=== PATIENT | female | born 1985 | race African-American/Black ===

== ENCOUNTER 2017-10-04 10:38 | Inpatient (IN) | payer OTHER ==
[2017-10-04] MEDS ORDERED: LIDOCAINE 1% (MPF) 30 ML INJ INJ (13:30)
[2017-10-04] MEDS ORDERED: MISOPROSTOL 200 MCG TAB PR (13:30)
[2017-10-04] MEDS ORDERED: METHYLERGONOVINE 0.2 MG INJ IM (13:30)
[2017-10-04] MEDS ORDERED: IBUPROFEN 600 MG TAB PO (13:30)
[2017-10-04] MEDS ORDERED: CARBOPROST 250 MCG INJ IM (13:30)
[2017-10-04] MEDS ORDERED: OXYTOCIN 30 UNITS/LR 500 ML IV (13:30)
[2017-10-04] MEDS: MISOPROSTOL 25 MCG CAPSULE PO ×3 (15:41→21:00)
[2017-10-04 15:59] LABS: ADD MAN DIFF? NO
[2017-10-04] MEDS ORDERED: LACTATED RINGER'S 500 ML IV (16:00)
[2017-10-04] MEDS: LACTATED RINGER'S 1,000 ML IV ×2 (16:01→23:07)
[2017-10-04 16:06] LABS: WHITE BLOOD COUNT 10.3 10^3/ul (4.8-10.8)
[2017-10-04 16:06] LABS: BASOPHILS % 0.1 % (0.0-2.0); EOSINOPHILS # 0.1 10^3/ul (0.0-0.5); EOSINOPHILS % 0.8 % (0.0-7.0); HEMATOCRIT 34.5 % (37.0-47.0); HEMOGLOBIN 11.9 g/dl (12.0-16.0); LYMPHOCYTES # 2.2 10^3/ul (0.8-2.9); LYMPHOCYTES % 21.8 % (15.0-51.0); MEAN CORPUSCULAR HEMOGLOBIN 33.2 pg (29.0-33.0); MEAN CORPUSCULAR HGB CONC 34.5 g/dl (32.0-37.0); MEAN CORPUSCULAR VOLUME 96.4 fl (82.0-101.0); MONOCYTE # 0.9 10^3/ul (0.3-0.9); MONOCYTES % 8.6 % (0.0-11.0); NEUTROPHILS % 67.5 % (39.0-77.0); PLATELET COUNT 163 10^3/UL (140-415); RED BLOOD COUNT 3.58 10^6/ul (4.20-5.40); RED CELL DISTRIBUTION WIDTH 13.7 % (11.5-14.5)
[2017-10-04 16:22] LABS: INR 0.94; PARTIAL THROMBOPLASTIN TIME 25.8 Sec (25.0-35.0); PROTIME 12.7 Sec (11.9-14.9)
[2017-10-04 17:33] LABS: AMPHETAMINE/METHAMPHETAMINE Negative (NEGATIVE); BARBITURATES Negative (NEGATIVE); BENZODIAZEPINES Negative (NEGATIVE); COCAINE Negative (NEGATIVE); OPIATES Negative (NEGATIVE)
[2017-10-04 17:36] LABS: CANNABINOIDS Positive (NEGATIVE)
[2017-10-04] MEDS: BUTORPHANOL 2 MG INJ IV (23:21)
[2017-10-05] MEDS: LACTATED RINGER'S 1,000 ML IV* (00:57)
[2017-10-05] MEDS: MISOPROSTOL 25 MCG CAPSULE PO ×3 (01:00→09:00)
[2017-10-05] MEDS: BUTORPHANOL 2 MG INJ IV (01:24)
[2017-10-05] MEDS: LACTATED RINGER'S 1,000 ML IV ×5 (05:10→20:04)
[2017-10-05] MEDS ORDERED: FENTAnyl 2MCG/ML-ROPIV 0.2% 100 ML (06:19)
[2017-10-05] MEDS ORDERED: ONDANSETRON 4 MG INJ IV (07:00)
[2017-10-05] MEDS ORDERED: NALOXONE (0.4 MG/ML) INJ IV (07:00)
[2017-10-05] MEDS ORDERED: HYDROmorphONE 0.5 MG/0.5 ML SYG IV ×2 (07:00)
[2017-10-05] MEDS ORDERED: KETOROLAC 30 MG INJ IV (07:00)
[2017-10-05] MEDS ORDERED: DIPHENHYDRAMINE 50 MG INJ IV (07:00)
[2017-10-05] MEDS: FENTAnyl 2MCG/ML-ROPIV 0.2% 100 ML BAG EPI ×2 (09:50→14:51)
[2017-10-05] MEDS: OXYTOCIN 30 UNITS/LR 500 ML IV ×2 (18:30→20:54)
[2017-10-05] MEDS: OXYTOCIN 30 UNITS/LR 500 ML IVPB (20:36)
[2017-10-05 21:39] LABS: RAPID PLASMA REAGIN NONREACTIVE (NR)
[2017-10-05] MEDS: HYDROCODONE/APAP (5/325) TAB PO (22:53)
[2017-10-05] MEDS: WITCH HAZEL/GLYCERIN PAD PR (22:53)
[2017-10-05] MEDS: LANOLIN 7 GM TUBE TOP (22:54)
[2017-10-05] MEDS: DIBUCAINE 1% 30 GM OINT PR (22:54)
[2017-10-05] MEDS: BENZOCAINE 20% 56 ML SPRAY TOP (22:54)
[2017-10-05] MEDS ORDERED: ACETAMINOPHEN 325 MG TAB PO (23:00)
[2017-10-05] MEDS ORDERED: OXYTOCIN 30 UNITS/LR 500 ML IV (23:00)
[2017-10-05] MEDS ORDERED: MISOPROSTOL 200 MCG TAB PR (23:00)
[2017-10-05] MEDS ORDERED: METHYLERGONOVINE 0.2 MG INJ IM (23:00)
[2017-10-05] MEDS ORDERED: CARBOPROST 250 MCG INJ IM (23:00)
[2017-10-05] MEDS: IBUPROFEN 600 MG TAB PO (23:47)
[2017-10-06] MEDS: IBUPROFEN 600 MG TAB PO ×3 (05:46→18:14)
[2017-10-06] MEDS: SENNA/DOCUSATE NA (8.6MG/50MG) TAB PO ×2 (08:32→21:40)
[2017-10-06] MEDS: HYDROCODONE/APAP (5/325) TAB PO (08:34)
[2017-10-06 10:35] LABS: WHITE BLOOD COUNT 27.1 10^3/ul (4.8-10.8)
[2017-10-06 10:35] LABS: ABNORMAL IP MESSAGE 1; HEMATOCRIT 29.4 % (37.0-47.0); HEMOGLOBIN 10.3 g/dl (12.0-16.0); MEAN CORPUSCULAR HEMOGLOBIN 33.6 pg (29.0-33.0); MEAN CORPUSCULAR VOLUME 95.8 fl (82.0-101.0); PLATELET COUNT 140 10^3/UL (140-415); RED BLOOD COUNT 3.07 10^6/ul (4.20-5.40); RED CELL DISTRIBUTION WIDTH 13.5 % (11.5-14.5)
[2017-10-06 10:41] LABS: ADD MAN DIFF? YES; POSITIVE DIFF @See below
[2017-10-06 11:22] LABS: HEPATITIS B SURFACE ANTIGEN NEGATIVE (NEGATIVE)
[2017-10-07] MEDS: IBUPROFEN 600 MG TAB PO ×4 (00:11→17:30)
[2017-10-07] MEDS: SENNA/DOCUSATE NA (8.6MG/50MG) TAB PO (08:46)
[2017-10-07] MEDS: HYDROCODONE/APAP (5/325) TAB PO (08:47)
[2017-10-07 09:41] LABS: ADD MAN DIFF? NO
[2017-10-07 09:44] LABS: WHITE BLOOD COUNT 18.8 10^3/ul (4.8-10.8)
[2017-10-07 09:44] LABS: BASOPHILS % 0.2 % (0.0-2.0); EOSINOPHILS # 0.2 10^3/ul (0.0-0.5); EOSINOPHILS % 0.8 % (0.0-7.0); HEMATOCRIT 29.9 % (37.0-47.0); HEMOGLOBIN 10.4 g/dl (12.0-16.0); LYMPHOCYTES # 2.4 10^3/ul (0.8-2.9); LYMPHOCYTES % 12.5 % (15.0-51.0); MEAN CORPUSCULAR HEMOGLOBIN 33.5 pg (29.0-33.0); MEAN CORPUSCULAR HGB CONC 34.8 g/dl (32.0-37.0); MEAN CORPUSCULAR VOLUME 96.5 fl (82.0-101.0); MONOCYTE # 1.1 10^3/ul (0.3-0.9); MONOCYTES % 5.8 % (0.0-11.0); NEUTROPHILS % 79.7 % (39.0-77.0); PLATELET COUNT 152 10^3/UL (140-415); RED CELL DISTRIBUTION WIDTH 13.5 % (11.5-14.5)
[2017-10-07] MEDS: DIPHTH/TET/ACEL PERTUSS (ADULT) 0.5 ML VIAL IM* (12:47)
[2017-10-10 02:51] LABS: URINE DRUG SCREEN RESULT DRUG(S) DETECTED:
== END 2017-10-07 19:15 | disposition home or self-care (01) | DRG 775 ==
LOC: OBT 10:38 → L-D 10:39 → PP1 10-05 22:24 → L-D 13:24 → OBT 13:28 → L-D 13:07
PROVIDERS: Obstetrics & Gynecology
PROC: 10E0XZZ Delivery of Products of Conception, External Approach (ICD-10-PCS; principal; 2017-10-05)
PROC: 3E0P7VZ Introduction of Hormone into Female Reproductive, Via Natural or Artificial Opening (ICD-10-PCS; 2017-10-05)
PROC: 3E033VJ Introduction of Other Hormone into Peripheral Vein, Percutaneous Approach (ICD-10-PCS; 2017-10-05)
DX: O48.0 Post-term pregnancy (principal); O77.0 Labor and delivery complicated by meconium in amniotic fluid; Z37.0 Single live birth; Z3A.40 40 weeks gestation of pregnancy
CPT/HCPCS: 62319; 76815; 76818; 80307; 85025; 85610; 85730; 86592; 86900; 86901; 87340; 99464